=== PATIENT | female | born 1965 | race Caucasian/White ===

== ENCOUNTER → 2017-01-22 | Outpatient (CLI) | payer OTHER ==
--- NOTE | ~2017-01-22 | CT55 ---
[facility] A Service of [facility] & [facility] RADIOLOGY TEXT RESULTS PATIENT: ANNALISA MALONE LOCATION: [facility] : 67 UNIT #: [id number] AGE: [address]: DANILO Goodson APRN SEX: F ORDER DR: [id number] [facility] [address] [place], [place] [address] [id number] O MR#: [id number] #: [id number] NAME: ANNALISA MALONE : 1965 SEX: F STUDY DATE/TIME: 01/22/2017 12:36 UNIT: [facility] ROOM: STUDY DESCRIPTION: CT Chest W Con Attending Physician: Danilo Goodson Ordering Physician: Jose David Goodson Primary Care Physician: Danilo Goodson MEDICAL IMAGING REPORT This report is preliminary unless electronic signature is present EXAM CT chest with contrast. HISTORY Abnormal finding chest x-ray done in [facility] diagnosed with TB 18 years ago, chest x-ray 9 months ago. Attempting to get results from M.D. The M.D. [facility] chest x-ray done in [facility]. Prior thyroidectomy. TECHNIQUE This CT exam was performed with one or more of the following radiation dose reduction techniques: automatic exposure control, adjustment of mA and/or kV according to patient size, and iterative reconstruction. FINDINGS CT chest performed with intravenous administration 70 mL Isovue 370. No prior studies for comparison. Comparison with prior examinations strongly recommended. The thyroid is surgically absent by history. No axillary adenopathy. There is a mediastinal and right suprahilar mass. It contains internal calcifications. It measures approximately 3.85 cm x 5.86 cm transversely x 6.25 cm in craniocaudal extent. It abuts the right brachiocephalic vein and superior vena cava without encasement. It abuts the right mainstem bronchus. There is abnormal soft tissue density material within the right mainstem bronchus having the same CT density characteristics as the mass. This is concerning for endobronchial extension. Bronchoscopic assessment strongly recommended. The right mainstem bronchus is narrowed as a result, but there is no critical narrowing. The heart is normal to upper limits of normal in size. There is no pleural effusion. Visualized portions of the liver notable for a 1.3 cm central right hepatic lobe cyst. Visualized portions of gallbladder, spleen, pancreas, adrenal glands, upper renal poles, stomach, small bowel, colon unremarkable. [facility] A Service of [facility] RADIOLOGY TEXT RESULTS PATIENT: ANNALISA MALONE LOCATION: [facility] : 67 UNIT #: [id number] AGE: [address]: DANILO Goodson, DIRECTOR OF CATH LAB SEX: F ORDER DR: The pulmonary parenchyma shows volume loss in the right upper lobe with elevation of the minor fissure. The right upper lobe bronchus is poorly defined, and it is possible that the endobronchial soft tissue density within the right mainstem bronchus is occluding the right upper lobe bronchus with associated significant collapse of the right upper lobe. Again, bronchoscopic evaluation may be useful. The remainder of the right bronchial tree appears intact. There is underlying bilateral centrilobular emphysema. No other mass lesions. Calcified granuloma right lower lobe. No evidence of pneumonia or edema. The pulmonary arteries show no acute appearing abnormality. The aorta is normal in caliber. Great vessel origins patent. Flow in the bilateral proximal vertebral common carotid arteries. Celiac axis patent. The bony structures show no acute abnormality. IMPRESSION 1. Abnormal examination. Please see the complete dictation above for full details. There is a right suprahilar and mediastinal mass with internal calcifications measuring approximately 3.85 cm x 5.86 cm x 6.25 cm. It abuts the right superior mediastinum, right brachiocephalic vein, superior vena cava. It does not appear to cause vascular encasement or vascular compromise. There is abnormal soft tissue within the distal right mainstem bronchus, which appears probably contiguous with the above described mass. The right upper lobe bronchus is not well delineated and there is significant volume loss in the right upper lobe. The constellation of findings is somewhat indeterminate. Benign etiology could include an atypical manifestation of TB or sequelae of prior active TB infection in light of the patient's stated history. The possibility of neoplastic/malignant disease is not excluded. In the absence of prior characterization and/or prior studies demonstrating prolonged stability of this abnormality, malignant neoplasm is to be excluded. Bronchoscopic assessment recommended. The abnormality may be amenable to percutaneous sampling. It is certainly amenable to further characterization with CT PET scan. 2. Aside from the above described mass lesion, there is no indication of mediastinal or hilar adenopathy. 3. Underlying emphysema. 4. Calcified granuloma right lung base. 5. Visualized upper abdomen notable for hepatic cyst. No suspicious upper abdominal findings. 6. See complete details in body of report above. Dictated by... Ras Christine M.D. THIS IS AN ELECTRONICALLY VERIFIED REPORT Ras Christine M.D. at 01/23/2017 6:14 PM ANUK/grover [facility]. [facility] A Service of [facility] RADIOLOGY TEXT RESULTS PATIENT: ANNALISA MALONE [id number] 67 UNIT #: [id number] AGE: [address]: DANILO Goodson, DIRECTOR OF CATH LAB SEX: F ORDER DR: TD: 01/23/2017 11:26 JOB #: [id number] MEDICAL IMAGING REPORT Page 1 of 1 COPY
== END | disposition home or self-care (01) ==
LOC: CCAT 10:41
DX: R91.8 Other nonspecific abnormal finding of lung field (principal); J43.9 Emphysema, unspecified; J84.10 Pulmonary fibrosis, unspecified; K76.89 Other specified diseases of liver
CPT/HCPCS: 71260; Q9967

== ENCOUNTER → 2017-01-31 | Outpatient (CLI) | payer OTHER ==
--- NOTE | ~2017-01-31 | US128 ---
[id number] [facility] [address] [place], [place] [address] [id number] O MR#: [id number] Acc #: [id number] NAME: ANNALISA MALONE : 1965 SEX: F STUDY DATE/TIME: 01/31/2017 12:48 UNIT: [facility] ROOM: STUDY DESCRIPTION: Thyroid Attending Physician: Rosalinda Downey Aprn Referring Physician: Rosalinda Downey Aprn Ordering Physician: Rosalinda Downey Aprn Primary Care Physician: Rosalinda Downey Aprn MEDICAL IMAGING REPORT This report is preliminary unless electronic signature is present EXAM Ultrasound of thyroid gland. INDICATIONS History of prior thyroidectomy in 2013. Patient had chest CT performed January 22, 2017, which showed a partially calcified mass in the right lung apex. TECHNIQUE Mayorga-scale and color Doppler sonographic images were obtained through the thyroidectomy bed. I do not see any definite residual thyroid parenchyma. No suspicious solid or cystic masses are seen. IMPRESSION No residual thyroid parenchyma identified. No solid or cystic lesions seen. Dictated by... Sonja Ledezma M.D. THIS IS AN ELECTRONICALLY VERIFIED REPORT Sonja Ledezma M.D. at 02/01/2017 9:46 AM BONG/benigno TD: 01/31/2017 16:44 JOB #: [id number] MEDICAL IMAGING REPORT Page 1 of 1 COPY
== END | disposition home or self-care (01) ==
LOC: CWCC 12:13
DX: E89.0 Postprocedural hypothyroidism (principal); Z79.899 Other long term (current) drug therapy; D50.9 Iron deficiency anemia, unspecified; G43.909 Migraine, unspecified, not intractable, without status migrainosus; R91.8 Other nonspecific abnormal finding of lung field; Z79.1 Long term (current) use of non-steroidal anti-inflammatories (NSAID)
CPT/HCPCS: 76536